=== PATIENT | male | born 1990 | race Caucasian/White ===

== ENCOUNTER 2017-03-29 06:35 | Emergency (ER) | payer OTHER ==
[2017-03-29 06:43] VITALS: RESP 16
--- NOTE | 2017-03-29 07:00 | EDPHY ---
H & P Stated Complaint: c/o mid to mid/L abd pain x 6.5 hrs, nausea no vomiting Time Seen by Provider: 03/29/17 06:59 HPI/ROS: CHIEF COMPLAINT: Abdominal pain HISTORY OF PRESENT ILLNESS: The patient presents the ED with abdominal pain, bloating, no bowel movement or flatus for the past day. Patient has a history of prior small-bowel obstruction from complications related to an appendectomy surgery. He required hospitalization x1 approximately a year and half ago. During that time his small-bowel obstruction resolved spontaneously. The patient today reports his symptoms are reminiscent of his prior bowel obstruction. He denies any vomiting but does feel nauseous. He denies any recent fever, cough or congestion. He has no additional significant past medical history. REVIEW OF SYSTEMS: A comprehensive 10 point review of systems is otherwise negative aside from elements mentioned in the history of present illness. Source: Patient Exam Limitations: No limitations - Medical/Surgical History Hx Asthma: No Hx Chronic Respiratory Disease: No Hx Diabetes: No Hx Cardiac Disease: No Hx Renal Disease: No Hx Cirrhosis: No Hx Alcoholism: No Hx HIV/AIDS: No Hx Splenectomy or Spleen Trauma: No Other PMH: appendectomy, gtube for bowel obstruction then reversal - Social History Smoking Status: Never smoked - Physical Exam Exam: General Appearance: Alert, no distress Eyes: Pupils equal and round no pallor or injection ENT, Mouth: Mucous membranes moist Respiratory: There are no retractions, lungs are clear to auscultation Cardiovascular: Regular rate and rhythm Gastrointestinal: Mild tenderness, general in nature, hypoactive bowel sounds, no focal tenderness to palpation Neurological: A&O, normal motor function, normal sensory exam, normal cranial nerves Skin: Warm and dry, no rashes Musculoskeletal: Neck is supple nontender Extremities: symmetrical, full range of motion Constitutional: Initial Vital Signs Heart Rate 57 L 03/29/17 06:39 Respiratory Rate 16 03/29/17 06:39 Blood Pressure 127/83 H 03/29/17 06:39 O2 Sat (%) 99 03/29/17 06:39 O2 Delivery Mode Room Air Allergies/Adverse Reactions: No Known Allergies Allergy (Verified 03/29/17 06:43) Home Medications: Medication Instructions Recorded Ibuprofen [Motrin (*)] 200 mg PO DAILY PRN 09/19/15 Acetaminophen [Tylenol 325mg (*)] 325 - 650 mg PO Q4 PRN #0 tab 09/21/15 Medical Decision Making - Diagnostics Imaging Results: Imaging Impressions Abdomen X-Ray 03/29/17 07:04 Impression: 1. No significantly dilated loops of bowel are seen within the abdomen. Very mild prominence of air-filled small bowel in the mid pelvis is noted in the location of previous small bowel obstruction. If symptoms worsen, repeat abdominal series or possibly CT imaging may be considered for further characterization. 2. The lungs are clear. ED Course/Re-evaluation: The patient presents to the ED for concerns about the possibility of a recurrent small-bowel obstruction. Patient was noted to have stable vital signs upon exam. He had no abdominal distension. He did have hypoactive bowel sounds. A plain film of the abdomen demonstrated no obvious bowel obstruction. In the emergency department the patient was given enema which resulted in a bowel movement. He was given a p.o. challenge and reports that his nausea and pain has improved. At this point time I do feel the patient can be discharged home with instructions to return to the ED for increasing pain, vomiting or distension. He is nontoxic and well-appearing. He has no evidence of an acute abdomen. It is certainly possible he had a partial obstruction versus ileus which has resolved. Differential Diagnosis: Differential diagnosis considered includes perforation, obstruction, ileus, constipation - Data Points Laboratory Results: Laboratory Results 03/29/17 07:15 03/29/17 07:15 03/29/17 03/29/17 07:15 07:15 WBC 4.46 10^3/uL 10^3/uL (3.80-9.50) RBC 5.07 10^6/uL 10^6/uL (4.40-6.38) Hgb 15.8 g/dL g/dL (13.7-17.5) Hct 43.9 % % (40.0-51.0) MCV 86.6 fL fL (81.5-99.8) MCH 31.2 pg pg (27.9-34.1) MCHC 36.0 g/dL g/dL (32.4-36.7) RDW 12.3 % % (11.5-15.2) Plt Count 158 10^3/uL 10^3/uL (150-400) MPV 9.1 fL fL (8.7-11.7) Neut % (Auto) 57.8 % % (39.3-74.2) Lymph % (Auto) 33.0 % % (15.0-45.0) [place] % (Auto) 7.4 % % (4.5-13.0) Eos % (Auto) 0.9 % % (0.6-7.6) Baso % (Auto) 0.7 % % (0.3-1.7) Nucleat RBC Rel Count 0.0 % % (0.0-0.2) Absolute Neuts (auto) 2.58 10^3/uL 10^3/uL (1.70-6.50) Absolute Lymphs (auto) 1.47 10^3/uL 10^3/uL (1.00-3.00) Absolute Monos (auto) 0.33 10^3/uL 10^3/uL (0.30-0.80) Absolute Eos (auto) 0.04 10^3/uL 10^3/uL (0.03-0.40) Absolute Basos (auto) 0.03 10^3/uL 10^3/uL (0.02-0.10) Absolute Nucleated RBC 0.00 10^3/uL 10^3/uL (0-0.01) Immature Gran % 0.2 % % (0.0-1.1) Immature Gran # 0.01 10^3/uL 10^3/uL (0.00-0.10) Sodium 142 mEq/L mEq/L (135-145) Potassium 4.3 mEq/L mEq/L (3.5-5.2) Chloride 106 mEq/L mEq/L (97-110) Carbon Dioxide 24 mEq/l mEq/l (22-31) Anion Gap 12 mEq/L mEq/L (8-16) BUN 16 mg/dL mg/dL (7-23) Creatinine 1.0 mg/dL mg/dL (0.7-1.3) Estimated GFR > 60 Glucose 97 mg/dL mg/dL (70-100) Calcium 9.6 mg/dL mg/dL (8.5-10.4) Medications Given: Discontinued Medications Sodium Chloride (Ns) 1,000 mls @ 0 mls/hr IV EDNOW ONE; Wide Open PRN Reason: Protocol Stop: 03/29/17 07:05 Last Admin: 03/29/17 07:12 Dose: 1,000 mls Departure - Departure Disposition: Home, Routine, Self-Care Clinical Impression: Abdominal pain Condition: Good Instructions: Abdominal Pain (ED) Additional Instructions: 1. Return to the ED for increasing abdominal pain, vomiting, fever or other concerns. 2. I recommend a liquid diet today with small frequent feedings. Referrals: Franc Carpio MD [Primary Care Provider] - As per Instructions
[2017-03-29] MEDS ORDERED: NS 1,000 ML IV ONE (07:04)
[2017-03-29 07:21] LABS: PLATELET COUNT 158 10^3/uL (150-400)
[2017-03-29 10:20] VITALS: BP 110/70; PULSE 72; O2SAT 96
== END 2017-03-29 10:20 | disposition home or self-care (01) ==
DX: R10.9 Unspecified abdominal pain (principal); E86.9 Volume depletion, unspecified; Z90.49 Acquired absence of other specified parts of digestive tract

== ENCOUNTER 2017-09-30 08:13 | Observation (INO) | payer OTHER ==
[2017-09-30] MEDS ORDERED: NS 1,000 ML IV ONE (08:24)
--- NOTE | 2017-09-30 08:31 | EDPHY ---
HPI/HX/ROS/PE/MDM Narrative: CHIEF COMPLAINT: Abdominal pain, constipation HPI: This patient is a 27 year old male with history of small bowel obstruction from complications related to an appendectomy two years ago. He presents with abdominal pain and bloating onset yesterday evening. About six months ago, he was evaluated for a similar presentation, but x-ray revealed no blockage and his symptoms were resolved following an enema. The patient tried taking a laxative last night around 10pm, but this did not relieve his symptoms though he did have a small bowel movement. His pain persisted through the night, and he began vomiting this morning. His pain is primarily periumbilical. He endorses a sensation of abdominal distension. He has not been able to keep down any food or liquids. He is not sure if he has been febrile. He denies chest pain , shortness of breath, diarrhea, or other associated symptoms. REVIEW OF SYSTEMS: Aside from elements discussed in the HPI, a comprehensive 10-point review of systems was reviewed and is negative. PMH: Small bowel obstruction due to complications following appendectomy 2015. SOCIAL HISTORY: . and child at bedside. Does not abuse tobacco, drugs, or alcohol. PHYSICAL EXAM: General:Patient is alert, in no acute distress. ENT:Eyes are normal to inspection. ENT inspection normal. Neck: Normal inspection. Full range of motion. Respiratory:No respiratory distress. Breath sounds normal bilaterally. Cardiovascular: Regular rate and rhythm. Strong peripheral pulses. Normal cap refill. Abdomen:Diffuse moderate tenderness to palpation. There are no peritoneal signs. There are normal bowel sounds. Back: Normal to inspection. No tenderness to palpation. Skin: Normal color. No rash. Warm and dry. Extremities: Normal appearance. Full range of motion. Neuro: Oriented x3. Normal motor function. Normal sensory function. ED Course: 27 y/o male with history of prior SBO presents with abdominal pain and distension beginning last night. He is diffusely tender on exam. Plan for CT abdomen/pelvis to rule out SBO or other acute processes. Plan to administer 1L IV NS, 15mg IV Toradol, and 4mg IV Zofran for symptom relief. Plan for labs including CBC, chemistries, I-stat. WBC elevated at 12,000. 09:[address] Lopez, radiologist. CT abdomen/pelvis shows small bowel obstruction. 9:33 Reassessed. Discussed imaging results. Plan to admit. The patient and his are comfortable with this plan. 09:35 Consulted with hospitalist service. Dr. White accepts admission for small bowel obstruction. - Data Points Imaging: Discussed imaging studies w/ call center receptionist Radiologist Laboratory Results: Laboratory Results 09/30/17 08:30 09/30/17 08:30 18 18 09/30/17 08:35 08:30 08:30 WBC 11.90 10^3/uL H 10^3/uL (3.80-9.50) RBC 5.85 10^6/uL 10^6/uL (4.40-6.38) Hgb 17.8 g/dL H g/dL (13.7-17.5) POC Hgb 18.0 gm/dL H gm/dL (13.7-17.5) Hct 49.5 % % (40.0-51.0) POC Hct 53 % H % (40-51) MCV 84.6 fL fL (81.5-99.8) MCH 30.4 pg pg (27.9-34.1) MCHC 36.0 g/dL g/dL (32.4-36.7) RDW 12.2 % % (11.5-15.2) Plt Count 219 10^3/uL 10^3/uL (150-400) MPV 9.2 fL fL (8.7-11.7) Neut % (Auto) 76.2 % H % (39.3-74.2) Lymph % (Auto) 18.4 % % (15.0-45.0) [place] % (Auto) 4.9 % % (4.5-13.0) Eos % (Auto) 0.0 % L % (0.6-7.6) Baso % (Auto) 0.2 % L % (0.3-1.7) Nucleat RBC Rel Count 0.0 % % (0.0-0.2) Absolute Neuts (auto) 9.08 10^3/uL H 10^3/uL (1.70-6.50) Absolute Lymphs (auto) 2.19 10^3/uL 10^3/uL (1.00-3.00) Absolute Monos (auto) 0.58 10^3/uL 10^3/uL (0.30-0.80) Absolute Eos (auto) 0.00 10^3/uL L 10^3/uL (0.03-0.40) Absolute Basos (auto) 0.02 10^3/uL 10^3/uL (0.02-0.10) Absolute Nucleated RBC 0.00 10^3/uL 10^3/uL (0-0.01) Immature Gran % 0.3 % % (0.0-1.1) Immature Gran # 0.03 10^3/uL 10^3/uL (0.00-0.10) POC Sodium 139 mEq/L mEq/L (135-145) Sodium 142 mEq/L mEq/L (135-145) POC Potassium 3.9 mEq/L mEq/L (3.3-5.0) Potassium 4.3 mEq/L mEq/L (3.3-5.0) POC Chloride 101 mEq/L mEq/L (97-110) Chloride 102 mEq/L mEq/L (97-110) Carbon Dioxide 23 mEq/l mEq/l (22-31) Anion Gap 17 mEq/L H mEq/L (8-16) POC BUN 14 mg/dL mg/dL (7-23) BUN 14 mg/dL mg/dL (7-23) Creatinine 1.1 mg/dL mg/dL (0.7-1.3) POC Creatinine 1.1 mg/dL mg/dL (0.7-1.3) Estimated GFR > 60 Glucose 127 mg/dL H mg/dL (70-100) POC Glucose 124 mg/dL H mg/dL (70-100) Calcium 10.8 mg/dL H mg/dL (8.5-10.4) Phosphorus 3.4 mg/dL mg/dL (2.5-4.5) Medications Given: Discontinued Medications Sodium Chloride (Ns) 1,000 mls @ 0 mls/hr IV EDNOW ONE; Wide Open PRN Reason: Protocol Stop: 09/30/17 08:25 Last Admin: 09/30/17 08:42 Dose: 1,000 mls Ketorolac Tromethamine (Toradol) 15 mg IVP EDNOW ONE Stop: 09/30/17 08:37 Last Admin: 09/30/17 08:42 Dose: 15 mg Ondansetron HCl (Zofran) 4 mg IVP EDNOW ONE Stop: 09/30/17 08:37 Last Admin: 09/30/17 08:42 Dose: 4 mg Point of Care Test Results: Chemistry 09/30/17 08:35 POC Sodium 139 mEq/L mEq/L (135-145) POC Potassium 3.9 mEq/L mEq/L (3.3-5.0) POC Chloride 101 mEq/L mEq/L (97-110) POC BUN 14 mg/dL mg/dL (7-23) POC Creatinine 1.1 mg/dL mg/dL (0.7-1.3) POC Glucose 124 mg/dL H mg/dL (70-100) ISTAT H&H 09/30/17 08:35 POC Hgb 18.0 gm/dL H gm/dL (13.7-17.5) POC Hct 53 % H % (40-51) General Initial Vital Signs: Initial Vital Signs Temperature (C) 36.7 C 09/30/17 08:16 Heart Rate 66 09/30/17 08:16 Respiratory Rate 16 09/30/17 08:16 Blood Pressure 123/80 H 09/30/17 08:16 O2 Sat (%) 98 09/30/17 08:16 O2 Delivery Mode Room Air Allergies/Adverse Reactions: No Known Allergies Allergy (Verified 09/30/17 08:16) Departure - Departure Disposition: [facility] Inpatient Acute Clinical Impression: Small bowel obstruction Condition: Fair Report Scribed for: Trey Manriquez Report Scribed by: Whitney Mcnulty Date of Report: 09/30/17 Time of Report: 09:56 Physician Review and Approval Statement: Portions of this note were transcribed by an ED scribe. I personally performed the history, physical exam, and medical decision making; and confirm the accuracy of the information in the transcribed note.
[2017-09-30] MEDS ORDERED: KETOROLAC 30 MG/1 ML SDV IVP ONE (08:36)
[2017-09-30] MEDS ORDERED: ONDANSETRON 4 MG/2 ML VIAL IVP ONE (08:36)
[2017-09-30 08:43] LABS: PLATELET COUNT 219 10^3/uL (150-400)
[2017-09-30] MEDS ORDERED: IOPAMIDOL (ISOVUE-300) 100 ML BTL ONE (08:56)
[2017-09-30] MEDS ORDERED: ONDANSETRON 4 MG/2 ML VIAL IVP PRN (09:52)
[2017-09-30] MEDS ORDERED: NS W/ 20 KCl/L 1,000 ML IV SCH (10:00)
[2017-09-30 11:27] VITALS: BP 93/51
--- NOTE | 2017-09-30 14:57 | PDGENHP ---
History and Physical - Chief Complaint abd pain - History of Present Illness This patient is a 27 year old male with history of small bowel obstruction from complications related to an appendectomy two years ago. He presents with abdominal pain and bloating onset yesterday evening. About six months ago, he was evaluated for a similar presentation, but x-ray revealed no blockage and his symptoms were resolved following an enema. The patient tried taking a laxative last night around 10pm, but this did not relieve his symptoms though he did have a small bowel movement. His pain persisted through the night, and he began vomiting this morning. His pain is primarily periumbilical. He endorses a sensation of abdominal distension. He has not been able to keep down any food or liquids. He is not sure if he has been febrile. He denies chest pain , shortness of breath, diarrhea, or other associated symptoms. He was given IVF in the ER. He reports feeling better PMH: Small bowel obstruction due to complications following appendectomy 2015. SOCIAL HISTORY: . and child at bedside. Does not abuse tobacco, drugs, or alcohol. History Information - Allergies/Home Medication List Allergies/Adverse Reactions: No Known Allergies Allergy (Verified 09/30/17 08:16) Home Medications: Herbals/Supplements -Info Only 1 ea PO DAILY 09/30/17 [Last Taken Unknown] I have personally reviewed and updated: medical history, social history - Social History Smoking Status: Never smoked Review of Systems Review of Systems: ROS: 10pt was reviewed & negative except for what was stated in HPI & below Physical Exam Physical Exam: Temp Pulse Resp BP Pulse Ox 36.9 C 50 L 16 93/51 L 96 09/30/17 11:24 09/30/17 11:24 09/30/17 11:24 09/30/17 11:24 09/30/17 11:24 Constitutional: no apparent distress Eyes: PERRL, EOMI Ears, Nose, Mouth, Throat: moist mucous membranes, hearing normal Gastrointestinal: normoactive bowel sounds, soft, non-tender abdomen Skin: warm Neurologic: AAOx3 Psychiatric: interacting appropriately, not anxious, not encephalopathic Lymph, Heme, Immunologic: No petechiae Lab Data & Imaging Review 09/30/17 08:30 09/30/17 08:30 WBC 11.90 10^3/uL (3.80-9.50) H 09/30/17 08:30 RBC 5.85 10^6/uL (4.40-6.38) 09/30/17 08:30 Hgb 17.8 g/dL (13.7-17.5) H 09/30/17 08:30 POC Hgb 18.0 gm/dL (13.7-17.5) H 09/30/17 08:35 Hct 49.5 % (40.0-51.0) 09/30/17 08:30 POC Hct 53 % (40-51) H 09/30/17 08:35 MCV 84.6 fL (81.5-99.8) 09/30/17 08:30 MCH 30.4 pg (27.9-34.1) 09/30/17 08:30 MCHC 36.0 g/dL (32.4-36.7) 09/30/17 08:30 RDW 12.2 % (11.5-15.2) 09/30/17 08:30 Plt Count 219 10^3/uL (150-400) 09/30/17 08:30 MPV 9.2 fL (8.7-11.7) 09/30/17 08:30 Neut % (Auto) 76.2 % (39.3-74.2) H 09/30/17 08:30 Lymph % (Auto) 18.4 % (15.0-45.0) 09/30/17 08:30 [place] % (Auto) 4.9 % (4.5-13.0) 09/30/17 08:30 Eos % (Auto) 0.0 % (0.6-7.6) L 09/30/17 08:30 Baso % (Auto) 0.2 % (0.3-1.7) L 09/30/17 08:30 Nucleat RBC Rel Count 0.0 % (0.0-0.2) 09/30/17 08:30 Absolute Neuts (auto) 9.08 10^3/uL (1.70-6.50) H 09/30/17 08:30 Absolute Lymphs (auto) 2.19 10^3/uL (1.00-3.00) 09/30/17 08:30 Absolute Monos (auto) 0.58 10^3/uL (0.30-0.80) 09/30/17 08:30 Absolute Eos (auto) 0.00 10^3/uL (0.03-0.40) L 09/30/17 08:30 Absolute Basos (auto) 0.02 10^3/uL (0.02-0.10) 09/30/17 08:30 Absolute Nucleated RBC 0.00 10^3/uL (0-0.01) 09/30/17 08:30 Immature Gran % 0.3 % (0.0-1.1) 09/30/17 08:30 Immature Gran # 0.03 10^3/uL (0.00-0.10) 09/30/17 08:30 POC Sodium 139 mEq/L (135-145) 09/30/17 08:35 Sodium 142 mEq/L (135-145) 09/30/17 08:30 POC Potassium 3.9 mEq/L (3.3-5.0) 09/30/17 08:35 Potassium 4.3 mEq/L (3.3-5.0) 09/30/17 08:30 POC Chloride 101 mEq/L (97-110) 09/30/17 08:35 Chloride 102 mEq/L (97-110) 09/30/17 08:30 Carbon Dioxide 23 mEq/l (22-31) 09/30/17 08:30 Anion Gap 17 mEq/L (8-16) H 09/30/17 08:30 POC BUN 14 mg/dL (7-23) 09/30/17 08:35 BUN 14 mg/dL (7-23) 09/30/17 08:30 Creatinine 1.1 mg/dL (0.7-1.3) 09/30/17 08:30 POC Creatinine 1.1 mg/dL (0.7-1.3) 09/30/17 08:35 Estimated GFR > 60 09/30/17 08:30 Glucose 127 mg/dL (70-100) H 09/30/17 08:30 POC Glucose 124 mg/dL (70-100) H 09/30/17 08:35 Calcium 10.8 mg/dL (8.5-10.4) H 09/30/17 08:30 Phosphorus 3.4 mg/dL (2.5-4.5) 09/30/17 08:30 Assessment & Plan Assessment: Small bowel obstruction (Acute) Plan: Observation bowel rest IVF non surgical mgmt
--- NOTE | 2017-09-30 15:00 | PDDCSUM ---
Discharge Summary Discharge Summary: This is a 27 yo male who was admitted with abd pain, Emesis, and SBO. He was admitted and provided bowel rest. Further IVF were given. He got better sooner than anticipated and actually had a bowel movement a few hours after admission. We went over options including monitoring overnight with additional IVF and starting a clear liquid diet vs discharge home. He and his are hoping for discharge. As he is feeling back to baseline with no emesis, abd pain, and has now had a bowel movement, I will discharge him. He will f/u with his PCP in 1-2 weeks. DDX: -SBO -Nausea -Abd Pain Exam: See H&P Meds: no new meds total time spent on admission and discharge is 55 minutes
== END 2017-09-30 16:06 | disposition home or self-care (01) ==
LOC: F3E 10:08
PROVIDERS: ADMIT Family Medicine; ATTEND Family Medicine
DX: K56.699 Other intestinal obstruction unspecified as to partial versus complete obstruction (principal); E86.9 Volume depletion, unspecified; Z90.49 Acquired absence of other specified parts of digestive tract
CPT/HCPCS: 74177; 96361; 96374; 99285; G0378; 82435-PO; 82565-PO; 82947-PO; 84132-PO; 84295-PO; 84520-PO; 85014-PO; J1885; J2405; Q9967

== ENCOUNTER 2018-02-03 22:45 | Emergency (ER) | payer OTHER ==
[2018-02-03] MEDS ORDERED: ONDANSETRON 4 MG/2 ML VIAL IVP ONE (23:01)
[2018-02-03] MEDS ORDERED: NS 1,000 ML IV ONE (23:01)
[2018-02-03] MEDS ORDERED: KETOROLAC 30 MG/1 ML SDV IVP ONE (23:01)
[2018-02-03 23:08] LABS: PLATELET COUNT 205 10^3/uL (150-400)
--- NOTE | 2018-02-03 23:11 | EDPHY ---
H & P Stated Complaint: abd pain N/C, similar to previous bowel obstruction Time Seen by Provider: 02/03/18 22:51 HPI/ROS: HPI The patient presents with nausea, abdominal pain, constipation which began slowly at about 6:00 p.m. Tonight. The pain is diffuse, sharp, worse with movements and intermittent. It got progressively worse by 8:00 p.m. And has remained stable since then. It is associated with nausea and constipation. The patient has history of about 3 prior small-bowel obstructions after an appendectomy in August of 2015 which was complicated by intra-abdominal abscess. These have improved with conservative measures.. REVIEW OF SYSTEMS 10 systems were reviewed and negative with the exception of the elements mentioned in the history of present illness. PMHx: Status post appendectomy with subsequent small bowel obstructions as detailed above S PHYSICAL General Appearance: Alert, no distress Eyes: Pupils equal and round no pallor or injection ENT, Mouth: Mucous membranes moist Respiratory: There are no retractions, lungs are clear to auscultation Cardiovascular: Regular rate and rhythm Gastrointestinal: Bowel sounds are diminished, Abdomen is soft and mildly tender in all quadrants, no masses Neurological: A&O, moves all extremities Skin: Warm and dry, no rashes Musculoskeletal: Neck is supple non tender Extremities: symmetrical, full range of motion Psychiatric: Patient is oriented X 3, there is no agitation Source: Patient, Old records Exam Limitations: No limitations - Personal History Current Tetanus/Diphtheria Vaccine: Yes Current Tetanus Diphtheria and Acellular Pertussis (TDAP): Yes - Medical/Surgical History Hx Asthma: No Hx Chronic Respiratory Disease: No Hx Diabetes: No Hx Cardiac Disease: No Hx Renal Disease: No Hx Cirrhosis: No Hx Alcoholism: No Hx HIV/AIDS: No Hx Splenectomy or Spleen Trauma: No Other PMH: appendectomy, gtube for bowel obstruction, reversal of g-tube - Social History Smoking Status: Never smoked Constitutional: Initial Vital Signs Temperature (C) 36.6 C 02/03/18 22:46 Heart Rate 52 L 02/03/18 22:46 Respiratory Rate 16 02/03/18 22:46 Blood Pressure 121/82 H 02/03/18 22:46 O2 Sat (%) 97 02/03/18 22:46 O2 Delivery Mode Room Air Allergies/Adverse Reactions: No Known Allergies Allergy (Verified 02/03/18 22:46) Home Medications: Medication Instructions Recorded Herbals/Supplements -Info Only 1 ea PO DAILY 09/30/17 Medical Decision Making - Diagnostics Imaging Results: KUB demonstrates no air-fluid levels, similar to prior x-ray, interpreted by me with similar findings by radiologist. Imaging: I viewed and interpreted images myself Differential Diagnosis: This is a 27-year-old male who presents with abdominal pain, nausea, constipation which feels similar to prior SBOs. In the emergency department, patient was started on IV fluids, made NPO, given Toradol and Zofran. Labs were checked and were normal. KUB demonstrates nonspecific bowel gas pattern. Patient was observed. He underwent an enema with no improvement in his symptoms. I discussed with the patient admission to the hospital and he was initially in agreement with this. I consulted with the hospitalist Dr. Villafuerte as well as the surgeon Dr. Stratton. When the hospitalist examined the patient, the patient was feeling much better and his abdominal exam was benign. He decided that he would like to go home. I feel this is reasonable. The patient will return if his pain persists. However he is feeling much better. Differential diagnosis includes partial small-bowel obstruction, small-bowel obstruction, constipation, ileus. - Data Points Laboratory Results: Laboratory Results 02/03/18 23:00 02/03/18 23:00 02/03/18 02/03/18 02/03/18 23:55 23:00 23:00 WBC 7.49 10^3/uL 10^3/uL (3.80-9.50) RBC 5.47 10^6/uL 10^6/uL (4.40-6.38) Hgb 16.8 g/dL g/dL (13.7-17.5) Hct 46.3 % % (40.0-51.0) MCV 84.6 fL fL (81.5-99.8) MCH 30.7 pg pg (27.9-34.1) MCHC 36.3 g/dL g/dL (32.4-36.7) RDW 11.8 % % (11.5-15.2) Plt Count 205 10^3/uL 10^3/uL (150-400) MPV 8.7 fL fL (8.7-11.7) Neut % (Auto) 52.8 % % (39.3-74.2) Lymph % (Auto) 39.1 % % (15.0-45.0) [place] % (Auto) 6.4 % % (4.5-13.0) Eos % (Auto) 1.1 % % (0.6-7.6) Baso % (Auto) 0.5 % % (0.3-1.7) Nucleat RBC Rel Count 0.0 % % (0.0-0.2) Absolute Neuts (auto) 3.95 10^3/uL 10^3/uL (1.70-6.50) Absolute Lymphs (auto) 2.93 10^3/uL 10^3/uL (1.00-3.00) Absolute Monos (auto) 0.48 10^3/uL 10^3/uL (0.30-0.80) Absolute Eos (auto) 0.08 10^3/uL 10^3/uL (0.03-0.40) Absolute Basos (auto) 0.04 10^3/uL 10^3/uL (0.02-0.10) Absolute Nucleated RBC 0.00 10^3/uL 10^3/uL (0-0.01) Immature Gran % 0.1 % % (0.0-1.1) Immature Gran # 0.01 10^3/uL 10^3/uL (0.00-0.10) Sodium 139 mEq/L mEq/L (135-145) Potassium 4.2 mEq/L mEq/L (3.5-5.2) Chloride 103 mEq/L mEq/L (97-110) Carbon Dioxide 25 mEq/l mEq/l (22-31) Anion Gap 11 mEq/L mEq/L (6-14) BUN 17 mg/dL mg/dL (7-23) Creatinine 1.1 mg/dL mg/dL (0.7-1.3) Estimated GFR > 60 Glucose 95 mg/dL mg/dL (70-100) Calcium 10.0 mg/dL mg/dL (8.5-10.4) Total Bilirubin 0.9 mg/dL mg/dL (0.1-1.4) Conjugated Bilirubin 0.2 mg/dL mg/dL (0.0-0.5) Unconjugated Bilirubin 0.7 mg/dL mg/dL (0.0-1.1) AST 24 IU/L IU/L (17-59) ALT 21 IU/L IU/L (21-72) Alkaline Phosphatase 64 IU/L IU/L (38-126) Total Protein 8.1 g/dL g/dL (6.3-8.2) Albumin 5.0 g/dL g/dL (3.5-5.0) Lipase 157 IU/L IU/L (23-300) TSH Urine Color YELLOW Urine Appearance HAZY Urine pH 6.0 (5.0-7.5) Ur Specific [place] 1.025 (1.002-1.030) Urine Protein NEGATIVE (NEGATIVE) Urine Ketones NEGATIVE (NEGATIVE) Urine Blood NEGATIVE (NEGATIVE) Urine Nitrate NEGATIVE (NEGATIVE) Urine Bilirubin NEGATIVE (NEGATIVE) Urine Urobilinogen NEGATIVE EU EU (0.2-1.0) Ur Leukocyte Esterase NEGATIVE (NEGATIVE) Urine Glucose NEGATIVE (NEGATIVE) 02/03/18 01:34 WBC RBC Hgb Hct MCV MCH MCHC RDW Plt Count MPV Neut % (Auto) Lymph % (Auto) [place] % (Auto) Eos % (Auto) Baso % (Auto) Nucleat RBC Rel Count Absolute Neuts (auto) Absolute Lymphs (auto) Absolute Monos (auto) Absolute Eos (auto) Absolute Basos (auto) Absolute Nucleated RBC Immature Gran % Immature Gran # Sodium Potassium Chloride Carbon Dioxide Anion Gap BUN Creatinine Estimated GFR Glucose Calcium Total Bilirubin Conjugated Bilirubin Unconjugated Bilirubin AST ALT Alkaline Phosphatase Total Protein Albumin Lipase TSH 6.110 uIU/mL H uIU/mL (0.465-4.680) Urine Color Urine Appearance Urine pH Ur Specific [place] Urine Protein Urine Ketones Urine Blood Urine Nitrate Urine Bilirubin Urine Urobilinogen Ur Leukocyte Esterase Urine Glucose Medications Given: Discontinued Medications Sodium Chloride (Ns) 1,000 mls @ 0 mls/hr IV EDNOW ONE; Wide Open PRN Reason: Protocol Stop: 02/03/18 23:02 Last Admin: 02/03/18 23:12 Dose: 1,000 mls Sodium Chloride (Ns) 1,000 mls @ 0 mls/hr IV EDNOW ONE; Wide Open PRN Reason: Protocol Stop: 02/04/18 01:16 Last Admin: 02/04/18 01:19 Dose: 1,000 mls Ketorolac Tromethamine (Toradol) 15 mg IVP EDNOW ONE Stop: 02/03/18 23:02 Last Admin: 02/03/18 23:12 Dose: 15 mg Ondansetron HCl (Zofran) 4 mg IVP EDNOW ONE Stop: 02/03/18 23:02 Last Admin: 02/03/18 23:13 Dose: 4 mg Departure - Departure Disposition: Home, Routine, Self-Care Clinical Impression: Abdominal pain, Nausea Condition: Good
[2018-02-04] MEDS ORDERED: NS 1,000 ML IV ONE (01:15)
[2018-02-04] MEDS ORDERED: ONDANSETRON DISINTEGRATING 4 MG TAB PO PRN (01:18)
[2018-02-04] MEDS ORDERED: ACETAMINOPHEN 325 MG TAB PO PRN (01:18)
[2018-02-04] MEDS ORDERED: PROMETHAZINE HCL 25 MG/ML INJ IVP PRN (01:18)
[2018-02-04] MEDS ORDERED: HYDROmorphONE/DILAUDID 1 MG/ML INJ IVP PRN (01:18)
[2018-02-04] MEDS ORDERED: ONDANSETRON 4 MG/2 ML VIAL IVP PRN (01:18)
[2018-02-04 01:20] VITALS: BP 111/63
[2018-02-04] MEDS ORDERED: NS 1,000 ML IV SCH (01:30)
== END 2018-02-04 02:27 | disposition home or self-care (01) ==
LOC: UNDOADMOB 02-04 01:18
DX: R10.9 Unspecified abdominal pain (principal); R11.0 Nausea
CPT/HCPCS: 96374; J1885; J2405